=== PATIENT | male | born 1990 | race Caucasian/White ===

== ENCOUNTER 2018-02-17 22:39 | Emergency (ER) | payer MEDICAID ==
[2018-02-17 22:57] VITALS: RESP 18
--- NOTE | 2018-02-17 23:07 | ED PDOC ---
HPI: General Adult Time Seen by Provider: 02/17/18 23:07 Chief Complaint (Nursing): Abnormal Skin Integrity Chief Complaint (Provider): insect bite History Per: Patient Additional Complaint(s): 27-year-old male with no past medical history presents with insect bite to right leg sustained 3 days ago. Patient was seen at urgent care and started on Keflex but has not noticed any improvement since starting the medication. Patient is concerned he may been bit by a spider although he did not see the insect that actually bit him. He denies active drainage, fever or chills PMD: none Past Medical History Reviewed: Historical Data, Nursing Documentation, Vital Signs Vital Signs: Last Vital Signs Temp 98.5 F 02/17/18 22:57 Pulse 86 02/17/18 22:57 Resp 18 02/17/18 22:57 BP 137/95 H 02/17/18 22:57 Pulse Ox 98 02/17/18 22:57 - Medical History PMH: No Chronic Diseases - Surgical History Surgical History: No Surg Hx - Family History Family History: States: No Known Family Hx - Living Arrangements Living Arrangements: With Family - Social History Current smoker - smoking cessation education provided: No Alcohol: None Drugs: Denies - Home Medications Home Medications: Ambulatory Orders Medication Instructions Recorded Amoxicillin/Clavulanate [Augmentin 1 tab PO BID #14 tab 02/18/18 875 MG-125 MG] Clindamycin [Cleocin] 300 mg PO QID #28 cap 02/18/18 - Allergies Allergies/Adverse Reactions: Allergies Allergy/AdvReac Type Severity Reaction Status Date / Time No Known Allergies Allergy Verified 02/17/18 22:55 Review of Systems ROS Statement: Except As Marked, All Systems Reviewed And Found Negative Constitutional: Negative for: Fever Skin: Positive for: Other (insect bite right leg) Physical Exam - Reviewed Nursing Documentation Reviewed: Yes Vital Signs Reviewed: Yes - Physical Exam Appears: Positive for: Well, Non-toxic, No Acute Distress Skin: Positive for: Normal Color Eye Exam: Positive for: Normal appearance Cardiovascular/Chest: Positive for: Regular Rate, Rhythm Respiratory: Positive for: Normal Breath Sounds. Negative for: Wheezing, Respiratory Distress Extremity: Positive for: Other (2 small pustular lesions noted to right garcia with surrounding cellulitis, moderate tenderness to palpation, no palpable fluid collection) Neurologic/Psych: Positive for: Alert, Oriented - Laboratory Results Result Diagrams: 02/18/18 00:25 02/18/18 00:25 - ECG O2 Sat by Pulse Oximetry: 98 Pulse Ox Interpretation: Normal Medical Decision Making Medical Decision Makin27 year old with insect bite to right leg Plan: Blood culture CBC CMP IVF IV zosyn IV vanco Patient states he feels better after meds given in ED. Patient will be dischar ged with rx augmentin and clindamycin. He was instructed to return if acutely worse, otherwise to follow up with clinic in 2-3 days. Disposition - Clinical Impression Clinical Impression: Insect bite, Cellulitis - Patient ED Disposition Is Patient to be Admitted: No Counseled Patient/Family Regarding: Studies Performed, Diagnosis, Need For Followup, Rx Given - Disposition Referrals: [facility] [Outside] Disposition: Routine/Home Disposition Time: 02:14 Condition: STABLE Additional Instructions: Stop taking current oral antibiotics and take rx meds as directed. [id number] Advil for pain as needed. Apply warm compresses with Epsom salts to affected area as often as possible. If symptoms worsen return to emergency department immediately, otherwise follow-up with clinic in 2-3 days. Prescriptions: Amoxicillin/Clavulanate [Augmentin 875 MG-125 MG] 1 tab PO BID #14 tab Clindamycin [Cleocin] 300 mg PO QID #28 cap Instructions: Insect Bites and Stings (DC), Cellulitis (Skin Infection), Adult (DC) Forms: [facility] (Faroese), [facility] ED School/Work Excuse Results - Lab Results Lab Results: 02/18/18 02/18/18 00:25 00:25 WBC 10.2 RBC 4.98 Hgb 15.1 Hct 44.4 MCV 89.1 MCH 30.3 MCHC 34.1 RDW 13.2 Plt Count 227 MPV 9.2 Neut % (Auto) 64.8 Lymph % (Auto) 24.2 [place]ward % (Auto) 8.4 Eos % (Auto) 2.0 Baso % (Auto) 0.6 Neut # (Auto) 6.6 Lymph # (Auto) 2.5 [place]ward # (Auto) 0.9 H Eos # (Auto) 0.2 Baso # (Auto) 0.1 Sodium 139 Potassium 3.7 Chloride 102 Carbon Dioxide 31 H Anion Gap 10 BUN 17 Creatinine 0.9 Est GFR ( Amer) > 60 Est GFR (Non-Af Amer) > 60 Random Glucose 90 Calcium 9.3 Total Bilirubin 0.4 AST 28 ALT 29 Alkaline Phosphatase 78 Total Protein 8.4 H Albumin 4.5 Globulin 3.8 Albumin/Globulin Ratio 1.2
[2018-02-18] MEDS ORDERED: Piperacillin/Tazobact 3.375 gm Inj IVPB STA (00:08)
[2018-02-18] MEDS ORDERED: Sodium Chloride 0.9% 1,000 ML IV STA (00:08)
[2018-02-18] MEDS ORDERED: Piperacillin/Tazobact 3.375 GM in Sodium Chloride 0.9% 100 ML IVPB STA (00:15)
[2018-02-18] MEDS ORDERED: Piperacillin/Tazobact 3.375 gm Inj IVPB ONE (00:16)
[2018-02-18] MEDS ORDERED: Vancomycin 1 g Inj ONE (00:16)
[2018-02-18 01:01] LABS: BASO # 0.1 K/uL (0.0-0.2); BASO % 0.6 % (0.0-2.0); EOS # 0.2 K/uL (0.0-0.7); HEMOGLOBIN 15.1 g/dL (12.0-18.0); LYMPH # 2.5 K/uL (1.0-4.3); LYMPH % 24.2 % (20.0-40.0); MEAN CELL VOLUME 89.1 fl (80.0-94.0); MEAN CORPUSCULAR HEMOGLOBIN 30.3 pg (27.0-31.0); MEAN CORPUSCULAR HGB CONC 34.1 g/dL (33.0-37.0); MEAN PLATELET VOLUME 9.2 fl (7.2-11.7); MONO # 0.9 K/uL (0.0-0.8); MONO % 8.4 % (0.0-10.0); NEUT # 6.6 K/uL (1.8-7.0); NEUT % 64.8 % (50.0-75.0); RBC 4.98 Mil/uL (4.40-5.90); RED CELL DISTRIBUTION WIDTH 13.2 % (11.5-14.5); WHITE BLOOD COUNT 10.2 K/uL (4.8-10.8)
[2018-02-18 01:05] LABS: ALB/GLOB RATIO 1.2 (1.0-2.1); ALBUMIN 4.5 g/dL (3.5-5.0); ALT/SGPT 29 U/L (21-72); AST/SGOT 28 U/L (17-59); BLOOD UREA NITROGEN 17 mg/dl (9-20); CALCIUM 9.3 mg/dL (8.4-10.2); GFR NON-AFRICAN AMERICAN > 60
[2018-02-18 03:26] VITALS: BP 121/78; PULSE 62; TEMP 97.4; O2SAT 100
== END 2018-02-18 03:31 | disposition home or self-care (01) ==
LOC: H.ER 22:39
DX: S80.861A Insect bite (nonvenomous), right lower leg, initial encounter (principal); W57.XXXA Bitten or stung by nonvenomous insect and other nonvenomous arthropods, initial encounter; Y92.89 Other specified places as the place of occurrence of the external cause
CPT/HCPCS: 80053; 85025; 87040; 96360; 99283; J2543; J7030